=== PATIENT | female | born 1980 | race African-American/Black ===

== ENCOUNTER 2016-10-21 13:27 | Emergency (ER) | payer MEDICAID ==
[~2016-10-21] VITALS: Ht 167.6 cm; Wt 95.0 kg
[2016-10-21 13:29] VITALS: BP 183/105; PULSE 80; RESP 18; TEMP 98; O2SAT 97
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
--- NOTE | 2016-10-21 14:20 | PD ---
Physical Exam Date Seen by Provider: Oct 21, 2016 Narrative I, Dr. Garcia, have reviewed the advance practice practitioner's documentation and am in agreement, met with the patient face to face, made the diagnosis, and the medical decision making was done by me. *My assessment and Findings: Patient is here for vaginal discharge. She is sitting on the stretcher smiling and in no distress. Data Data Last Documented VS Vital Signs Date Time Temp Pulse Resp B/P Pulse Ox O2 Delivery O2 Flow Rate FiO2 10/21/16 13:29 98.0 80 18 183/105 97 Room Air Orders Gc And Chlamydia Pcr (10/21/16 13:41) Wet Prep Profile (10/21/16 13:41) Urinalysis - C+S If Indicated (10/21/16 13:41) Ed Urine Pregnancytest Poc (10/21/16 13:41) MDM Supervised Visit with ILAN: Yes Scripts No Active Prescriptions or Reported Meds Jeanne Garcia MD Oct 21, 2016 14:20
[2016-10-21 14:30] VITALS: BP 178/89; PULSE 82; RESP 16; O2SAT 97
[2016-10-21 14:42] LABS: BACTERIA, URINE RARE /hpf; BLOOD, URINE TRACE (NEG); COMMENT (UR) CULTURE INDICATED; CULTURE IF INDICATED CULTURE INDICATED; GLUCOSE,URINE NEG (NEG); HYALINE CAST, URINE 1 /lpf (RARE); KETONE, URINE NEG (NEG); MUCUS URINE FEW /lpf (OCC); NITRITE,URINE NEG (NEG); SQUAMOUS EPITHELIAL CELL URINE 3 /hpf (0-5); URINE COLOR YELLOW (YELLW/STRAW)
[2016-10-21] MEDS ORDERED: MACR100C2 PO (14:59)
[2016-10-21] MEDS ORDERED: METR-1 PO (14:59)
[2016-10-21 16:29] LABS: CHLAMYDIA PCR NOT DETECTED (NOT DETECT); NEISSERIA PCR NOT DETECTED (NOT DETECT)
== END 2016-10-21 15:05 | disposition home or self-care (01) ==
LOC: NEPE 13:27
DX: N39.0 Urinary tract infection, site not specified (principal); B96.89 Other specified bacterial agents as the cause of diseases classified elsewhere; R31.9 Hematuria, unspecified; N76.0 Acute vaginitis
CPT/HCPCS: 81001; 84703; 87086; 87210; 87491; 87591; 99283

== ENCOUNTER 2017-03-03 17:23 | Emergency (ER) | payer OTHER, MEDICAID ==
[~2017-03-03] VITALS: Ht 167.6 cm; Wt 87.5 kg
[~2017-03-03 17:23] MED LIST: MACR100C2 PO; METR-1 PO
[2017-03-03 17:26] VITALS: BP 178/98; PULSE 88; RESP 14; TEMP 97.9; O2SAT 97
[2017-03-03] MEDS ORDERED: CYCL5TAB PO (17:41)
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
== END 2017-03-03 18:00 | disposition home or self-care (01) ==
LOC: NEPK 17:23
DX: S16.1XXA Strain of muscle, fascia and tendon at neck level, initial encounter (principal); S29.012A Strain of muscle and tendon of back wall of thorax, initial encounter; V43.02XA Car driver injured in collision with other type car in nontraffic accident, initial encounter; Y93.89 Activity, other specified; Y92.9 Unspecified place or not applicable; Y99.8 Other external cause status
CPT/HCPCS: 99283

== ENCOUNTER 2017-03-27 11:52 | Emergency (ER) | payer OTHER, MEDICAID ==
[~2017-03-27] VITALS: Ht 167.6 cm; Wt 90.0 kg
[~2017-03-27 11:52] MED LIST changes: +CYCL5TAB PO; -MACR100C2 PO; -METR-1 PO
[2017-03-27 11:53] VITALS: BP 180/111; PULSE 71; RESP 16; TEMP 98.6; O2SAT 98
[2017-03-27 12:12] VITALS: BP 178/108; PULSE 72
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
[2017-03-27] MEDS ORDERED: IBUP-232 PO (12:22)
[2017-03-27] MEDS ORDERED: BACL10TA PO (12:22)
[2017-03-27] MEDS ORDERED: LIDO1PAD52 TOPICAL (12:22)
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
[2017-03-27] MEDS ORDERED: KETOROLAC TROMETHAMINE 60 MG/2 ML (IM) VIAL IM ONE (12:30)
== END 2017-03-27 12:37 | disposition home or self-care (01) ==
LOC: NEPK 11:52
DX: S39.012A Strain of muscle, fascia and tendon of lower back, initial encounter (principal); M54.2 Cervicalgia; V43.52XA Car driver injured in collision with other type car in traffic accident, initial encounter; Y92.481 Parking lot as the place of occurrence of the external cause
CPT/HCPCS: 96372; 99284; J1885

== ENCOUNTER 2017-05-25 17:24 | Emergency (ER) | payer MEDICAID, OTHER ==
[~2017-05-25 17:24] MED LIST changes: +BACL10TA PO; +IBUP-232 PO; +LIDO1PAD52 TOPICAL
[2017-05-25 17:27] VITALS: BP 189/105; PULSE 74; RESP 14; TEMP 98.2; O2SAT 99
[2017-05-25] MEDS ORDERED: MAXI5O EACH EYE (18:14)
--- NOTE | 2017-05-25 18:30 | PD ---
HPI Chief Complaint: Eye Problems/Injury Time Seen by Provider: 18:16 Travel History International Travel<30 days: No Contact w/Intl Traveler<30days: No Traveled to known affect area: No History of Present Illness HPI 36-year-old Afro-[place]onese female presents to emergency Department with 2 day history of increasing bilateral eye irritation, erythema, and drainage. Patient states her eyes were crusty this morning. Patient states this started in the left side and moved to the right. She denies fever, chills, visual changes, or upper respiratory symptoms. Her pain is minimal. She has no known drug allergies. PFSH Past Medical History Diminished Hearing: No : 3 Para: 1 : 2 Past Surgical History Section: Yes (x1) Gynecologic Surgery: Yes Social History Alcohol Use: Yes (occ) Tobacco Use: No Substance Use: No Allergies-Medications (Allergen,Severity, Reaction): Coded Allergies: No Known Allergies (Verified , 05/25/17) Reported Meds & Prescriptions Reported Meds & Active Scripts Active Maxitrol Opth Drops (Neomycin/Polymyxin/Dexamethasone) 3.5-10,000-0.1 Mg-Units- % Susp 1-2 Drop EACH EYE Q4H 5 Days Lidocaine Patch 12 HR (Lidocaine) 5 % Patch 1 Patch TOPICAL DAILY PRN Remove patch after 12 hours Ibuprofen 600 Mg Tab 600 Mg PO Q6H PRN Baclofen 10 Mg Tab 10 Mg PO Q8HR PRN 7 Days Flexeril (Cyclobenzaprine HCl) 5 Mg Tab 5 Mg PO TID Review of Systems Except as stated in HPI: all other systems reviewed are Neg General / Constitutional: No: Fever, Chills Eyes: Positive: Drainage, Redness, Foreign Body Sensation, Tearing, No: Diploplia, Blurred Vision, Photophobia, Pain, Blind Spots, Visual changes, Blindness HENT: No: Headaches Cardiovascular: No: Chest Pain or Discomfort Respiratory: No: Shortness of Breath Gastrointestinal: No: Abdominal Pain Genitourinary: No: Dysuria Musculoskeletal: No: Pain Skin: No Rash Neurologic: No: Weakness Psychiatric: No: Depression Endocrine: No: Polydipsia Hematologic/Lymphatic: No: Easy Bruising Physical Exam Narrative GENERAL: Patient is in no acute distress. SKIN: Warm and dry. Normal color. Normal turgor. HEAD: Atraumatic. Normocephalic. EYES: Pupils equal and round. No scleral icterus. Moderate bilateral injection with minimal watery drainage. ENT: No nasal bleeding or discharge. Mucous membranes pink and moist. Pharynx is clear. Airway is patent. NECK: Trachea midline. Supple nontender. CARDIOVASCULAR: Regular rate and rhythm. RESPIRATORY: No accessory muscle use. Clear to auscultation. Breath sounds equal bilaterally. MUSCULOSKELETAL: Extremities without clubbing, cyanosis, or edema. No obvious deformities. NEUROLOGICAL: Awake and alert. No obvious cranial nerve deficits. Motor grossly within normal limits. Five out of 5 muscle strength in the arms and legs. Normal speech. PSYCHIATRIC: Appropriate mood and affect; insight and judgment normal. Data Data Last Documented VS Vital Signs Date Time Temp Pulse Resp B/P Pulse Ox O2 Delivery O2 Flow Rate FiO2 05/25/17 17:27 98.2 74 14 189/105 99 MDM Medical Decision Making Medical Screen Exam Complete: Yes Emergency Medical Condition: Yes Differential Diagnosis Upper respiratory infection. Conjunctivitis. Eye drainage. Narrative Course Patient is felt to have bilateral conjunctivitis. Patient is treated with Maxitrol drops as directed. Work note is given until Saturday. Patient follow up with symptoms are not improved as needed. Diagnosis Primary Impression: Conjunctivitis Qualified Code: H10.33 - Acute conjunctivitis of both eyes, unspecified acute conjunctivitis type Referrals: [facility] Patient Instructions: Conjunctivitis (ED), General Instructions Departure Forms: Work Release Enter return to work date: May 27, 2017 Additional Instructions: Patient is felt to have bilateral conjunctivitis. Patient is treated with Maxitrol drops as directed. Work note is given until Saturday. Patient follow up with symptoms are not improved as needed. Med/Other Pt SpecificInfo: Prescription(s) given Scripts Rlbguguh-Fxshcnorf-Ltojjgdanbydb Opth Drops (Maxitrol Opth Drops)3.5-10,000-0.1 Mg-Units-% Susp1-2 Drop EACH EYE Q4H 5 Days Prov:Uriel Groves MD 05/25/17 Disposition: 01 DISCHARGE HOME Condition: Stable Urbano Taylor May 25, 2017 18:30
== END 2017-05-25 19:13 | disposition home or self-care (01) ==
LOC: NEPD 17:24
DX: H10.9 Unspecified conjunctivitis (principal); Z79.899 Other long term (current) drug therapy
CPT/HCPCS: 99283

== ENCOUNTER 2017-07-30 23:19 | Emergency (ER) | payer MEDICAID ==
[~2017-07-30] VITALS: Ht 167.6 cm; Wt 99.0 kg
[~2017-07-30 23:19] MED LIST changes: +MAXI5O EACH EYE
[2017-07-30 23:21] VITALS: BP 177/44; PULSE 74; RESP 16; TEMP 98.4; O2SAT 98
[2017-07-30] MEDS ORDERED: DICL75TA PO (23:52)
[2017-07-30] MEDS ORDERED: AMOX500C PO (23:52)
--- NOTE | 2017-07-31 00:04 | PD ---
HPI Chief Complaint: Cold / Flu Symptoms Time Seen by Provider: 23:48 Travel History International Travel<30 days: No Contact w/Intl Traveler<30days: No Traveled to known affect area: No History of Present Illness HPI 37-year-old black female presents to emergency department complaining of a upper respiratory tract infection over the last 3 days. She states that she has had subjective fever and chills, headache, earache, sore throat, cough with colored sputum, pleuritic chest wall pain and general malaise. She denies any nausea vomiting. No abdominal pain or diarrhea. She does complain of lower back pain. She states that she's had lower back pain in the past and this gets exacerbated when she gets sick. She's had back problems for quite some time. She denies any dysuria or frequency. PFSH Past Medical History Narrative Medical Chronic back pain Diminished Hearing: No ?: Not LMP: 07/30/17 : 3 Para: 1 : 2 Past Surgical History Section: Yes (x1) Gynecologic Surgery: Yes (UNKNOWN VAGINAL SX) Social History Alcohol Use: Yes (occ) Tobacco Use: No Substance Use: No Allergies-Medications (Allergen,Severity, Reaction): Coded Allergies: No Known Allergies (Verified , 07/30/17) Reported Meds & Prescriptions Reported Meds & Active Scripts Active Diclofenac Sodium DR (Diclofenac Sodium) 75 Mg Tabdr 75 Mg PO BID Amoxicillin 500 Mg Cap 500 Mg PO TID Maxitrol Opth Drops (Neomycin/Polymyxin/Dexamethasone) 3.5-10,000-0.1 Mg-Units- % Susp 1-2 Drop EACH EYE Q4H 5 Days Lidocaine Patch 12 HR (Lidocaine) 5 % Patch 1 Patch TOPICAL DAILY PRN Remove patch after 12 hours Ibuprofen 600 Mg Tab 600 Mg PO Q6H PRN Baclofen 10 Mg Tab 10 Mg PO Q8HR PRN 7 Days Flexeril (Cyclobenzaprine HCl) 5 Mg Tab 5 Mg PO TID Review of Systems Except as stated in HPI: all other systems reviewed are Neg Physical Exam Narrative GENERAL: Well-nourished, well-developed patient. SKIN: Focused skin assessment warm/dry. HEAD: Normocephalic. EYES: No scleral icterus. No injection or drainage. NECK: Supple, trachea midline. No JVD or lymphadenopathy. CARDIOVASCULAR: Regular rate and rhythm without murmurs, gallops, or rubs. RESPIRATORY: Breath sounds equal bilaterally. No accessory muscle use. GASTROINTESTINAL: Abdomen soft, non-tender, nondistended. MUSCULOSKELETAL: No cyanosis, or edema. BACK: Lower thoracic upper lumbar tenderness more so on the right than left. Obvious deformity. No CVA tenderness. Data Data Last Documented VS Vital Signs Date Time Temp Pulse Resp B/P (MAP) Pulse Ox O2 Delivery O2 Flow Rate FiO2 07/30/17 23:21 98.4 74 16 177/44 (88) 98 Orders Orders Ed Discharge Order (07/31/17 00:05) Amoxicillin (Trimox) (07/31/17 00:30) Naproxen (Naprosyn) (07/31/17 00:30) MDM Medical Decision Making Medical Screen Exam Complete: Yes Emergency Medical Condition: Yes Medical Record Reviewed: Yes Differential Diagnosis MDM: High Differential diagnoses: Pneumonia, bronchitis, URI, asthma, RAD, legionnaire's disease, SARS, ARDS, influenza, bronchiolitis, RSV,PE,CHF Narrative Course I explained to the patient that her symptoms are most likely viral in nature and she is very insistent on treatment with antibiotics. She also would like something for her back. I agreed to give her prescription for amoxicillin and diclofenac. Patient's given amoxicillin 500 mg and Naprosyn 500 mg by mouth at time of discharge. This is URI, back pain Diagnosis Primary Impression: URI Additional Impression: Acute exacerbation of chronic low back pain Patient Instructions: General Instructions Departure Forms: Tests/Procedures, Work Release Special Instructions: No work 2 days. Additional Instructions: Rest. Increase fluids. Tylenol and Advil. Robitussin-DM. Amoxicillin and diclofenac Followup with your Dr. in one week. Return to the ER for any problems. Med/Other Pt SpecificInfo: Prescription(s) given Scripts Diclofenac Sodium (Diclofenac Sodium DR) 75 Mg Tabdr 75 MG PO BID, #14 TAB 0 Refills Prov: Dominik Molina MD 07/30/17 Amoxicillin (Amoxicillin) 500 Mg Cap 500 MG PO TID for Infection, #21 CAP 0 Refills Prov: Dominik Molina MD 07/30/17 Disposition: 01 DISCHARGE HOME Condition: Stable James Woodard Jul 31, 2017 00:04
[2017-07-31] MEDS ORDERED: NAPROXEN 500 MG TAB PO ONE (00:30)
[2017-07-31] MEDS ORDERED: AMOXICILLIN (TRIHYDRATE) 500 MG CAP PO ONE (00:30)
== END 2017-07-31 00:44 | disposition home or self-care (01) ==
LOC: NEPK 23:19
DX: J06.9 Acute upper respiratory infection, unspecified (principal); M54.5 Low back pain; G89.29 Other chronic pain; R05 Cough; R07.89 Other chest pain; R53.81 Other malaise; Z87.39 Personal history of other diseases of the musculoskeletal system and connective tissue
CPT/HCPCS: 99284

== ENCOUNTER 2017-09-24 19:41 | Emergency (ER) | payer MEDICAID ==
[~2017-09-24 19:41] MED LIST changes: +AMOX500C PO; +DICL75TA PO
[2017-09-24 19:42] VITALS: BP 188/122; PULSE 86; RESP 16; TEMP 98.1; O2SAT 100
[2017-09-24] MEDS ORDERED: AUGM875T3 PO (20:21)
--- NOTE | 2017-09-24 20:21 | PD ---
HPI Chief Complaint: Cold / Flu Symptoms Time Seen by Provider: 19:59 Travel History International Travel<30 days: No Contact w/Intl Traveler<30days: No Traveled to known affect area: No History of Present Illness HPI 37-year-old female presents to the emergency room for evaluation of nonproductive cough, congestion, sore throat, bilateral eye irritation, and swollen, painful lymph node. Most symptoms started yesterday. Congestion started a few days ago. Patient denies fever, chills, nausea, and vomiting. States the painful, swollen lump on her neck has been coming and going for the past year. It has never been painful before which is concerning to her. She has never seen her PCP for it. Patient reports sore throat worse when she swallows. Denies significant eye drainage, tearing, photophobia, changes in visual acuity. PFSH Past Medical History Diminished Hearing: No ?: Unknown LMP: CURRENT : 3 Para: 1 : 2 Past Surgical History Section: Yes (x1) Gynecologic Surgery: Yes (UNKNOWN VAGINAL SX) Social History Alcohol Use: Yes (occ) Tobacco Use: No Substance Use: No Allergies-Medications (Allergen,Severity, Reaction): Coded Allergies: No Known Allergies (Verified , 07/30/17) Reported Meds & Prescriptions Reported Meds & Active Scripts Active Augmentin (Amoxicillin-Clavulanate) 875-125 Mg Tab 1 Tab PO BID Diclofenac Sodium DR (Diclofenac Sodium) 75 Mg Tabdr 75 Mg PO BID Amoxicillin 500 Mg Cap 500 Mg PO TID Maxitrol Opth Drops (Neomycin/Polymyxin/Dexamethasone) 3.5-10,000-0.1 Mg-Units- % Susp 1-2 Drop EACH EYE Q4H 5 Days Lidocaine Patch 12 HR (Lidocaine) 5 % Patch 1 Patch TOPICAL DAILY PRN Remove patch after 12 hours Ibuprofen 600 Mg Tab 600 Mg PO Q6H PRN Baclofen 10 Mg Tab 10 Mg PO Q8HR PRN 7 Days Flexeril (Cyclobenzaprine HCl) 5 Mg Tab 5 Mg PO TID Review of Systems Except as stated in HPI: all other systems reviewed are Neg Physical Exam Narrative GENERAL: Well-nourished, well-developed female in no acute distress. Afebrile. Ambulatory. SKIN: Focused skin assessment warm/dry. HEAD: Normocephalic. EYES: No scleral icterus. No injection or drainage. ENT: Mucosa pink and moist. No significant erythema or exudates. No uvular edema. No uvular, palatal, or tonsillar deviation. Airway patent. Nasal turbinates appear normal without nasal blood, purulent drainage or septal hematoma. EARS: Bilateral pinnae and external canals appear within normal limits. Bilateral tympanic membranes without erythema, dullness or perforation. NECK: Supple, trachea midline. No JVD. There is a 2 cm in diameter tender, non- mobile, hard, round lymph node in the left anterior cervical region. CARDIOVASCULAR: Regular rate and rhythm without murmurs, gallops, or rubs. RESPIRATORY: Breath sounds equal bilaterally. No accessory muscle use. No crackles, rales, wheezes, or rhonchi. Data Data Last Documented VS Vital Signs Date Time Temp Pulse Resp B/P (MAP) Pulse Ox O2 Delivery O2 Flow Rate FiO2 09/24/17 19:42 98.1 86 16 188/122 (144) 100 Room Air Orders Orders Ed Discharge Order (09/24/17 20:22) [facility] Medical Decision Making Medical Screen Exam Complete: Yes Emergency Medical Condition: Yes Medical Record Reviewed: Yes Differential Diagnosis Conjunctivitis, URI, sinusitis, lymphadenopathy Narrative Course 37-year-old female presents to the emergency room for evaluation of cough and cold symptoms for the past 2 days. Patient is afebrile and well-appearing in the emergency room. Physical exam is reassuring. Lung sounds clear and equal bilaterally. Throat is mildly erythematous without team or exudates. Airway patent. Patient does have a 2 cm, tender, non-mobile, round limits in the left anterior cervical region. Lymph node is likely tender secondary to upper respiratory infection. Patient will be discharged with prescription for Augmentin and told to follow up with ENT for outpatient biopsy if symptoms persist. She'll also be discharged with ciprofloxacin ointment for her conjunctivitis. Patient was noted to have incidental hypertension. States she was never diagnosed by her PCP because she has white coat syndrome and her blood pressure is not normally high. She was instructed to follow up with her PCP after keeping a 2 week log of blood pressures. Told to return for worsening symptoms. She understands and agrees to plan. Diagnosis Primary Impression: Cervical adenopathy Additional Impressions: URI (upper respiratory infection) Qualified Codes: J00 - Acute nasopharyngitis [common cold] Conjunctivitis Qualified Codes: H10.33 - Unspecified acute conjunctivitis, bilateral Referrals: Ear / Nose / Throat Specialist Primary Care Physician Additional Instructions: Augmentin as directed, until gone. Ciprofloxacin ointment as directed. Throw away old contacts. Follow-up with a primary care physician for outpatient referral to ENT. Also follow up about blood pressure Return to the emergency room for worsening symptoms. Scripts Amoxicillin-Clavulanate (Augmentin) 875-125 Mg Tab 1 TAB PO BID for Infection, #14 TAB 0 Refills Prov: Bambi Alejandre MD 09/24/17 Disposition: 01 DISCHARGE HOME Condition: Stable Rachel Grissom Sep 24, 2017 20:21
[2017-09-24] MEDS ORDERED: CIPR0.3S2 EACH EYE (20:42)
[2017-09-24 20:45] VITALS: BP 179/107
== END 2017-09-24 20:45 | disposition home or self-care (01) ==
LOC: NEPK 19:41
DX: R59.9 Enlarged lymph nodes, unspecified (principal); J06.9 Acute upper respiratory infection, unspecified; H10.9 Unspecified conjunctivitis
CPT/HCPCS: 99283